=== PATIENT | female | born 1990 | race Caucasian/White ===

== ENCOUNTER 2016-08-31 18:52 | Emergency (ER) | payer OTHER ==
[2016-08-31 18:57] VITALS: BP 125/74; PULSE 69; RESP 18; TEMP 97.9; O2SAT 99
--- NOTE | 2016-08-31 19:20 | EDPHY ---
H & P Time Seen by Provider: 08/31/16 19:04 HPI/ROS: CHIEF COMPLAINT: Multiple complaints HISTORY OF PRESENT ILLNESS: The patient is a 26-year-old female who presents to the emergency department with multiple complaints. Patient states that in the past week she has had a sore throat and congestion. She flew to [place] from [place]. She landed 11 30. Hers symptoms started around 12 30. She developed mild shortness of breath. 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 She feels as though she has had shallow breathing and her chest feels heavy. She had an episode of left- sided headache that she calls "a migraine." However, she has no history of migraines. She has no headache currently. No nausea or vomiting. No visual change. No weakness or numbness. No leg pain or swelling. REVIEW OF SYSTEMS: My complete review of systems is negative except as mentioned in the HPI. Past Medical/Surgical History: Includes irregular menses Past surgical history: Negative Social History: The patient does not smoke Physical Exam: 36.6, 125/74, 69, 18, 99% on room air GENERAL: Well-appearing, in no acute distress, alert. HEENT: Eyes normal to inspection, normal pharynx, no signs of dehydration. NECK: No thyromegaly, no lymphadenopathy, supple. RESPIRATORY: Clear to auscultation bilaterally, no rales, rhonchi or wheezing. Normal CVS: Regular rate and rhythm, no rubs, murmurs, or gallops. ABDOMEN: Soft, nontender, nondistended, no organomegaly. BACK: Normal to inspection, no CVA tenderness. SKIN: Normal color, no rash, warm, dry. No pallor. EXTREMITIES: No pedal edema, no calf tenderness, no Homans sign or cords, no joint swelling. NEURO/PSYCH: Higher functions: Alert and Oriented x3. Normal speech and cognition. Normal mood and affect. Cranial nerves: Normal as tested. Cerebellar: Normal as tested. Good finger to nose, good [id number], normal gait. Peripheral exam: Normal motor exam. Normal sensation. Normal reflexes. Constitutional: Initial Vital Signs Temperature (C) 36.6 C 08/31/16 18:53 Heart Rate 69 08/31/16 18:53 Respiratory Rate 18 08/31/16 18:53 Blood Pressure 125/74 H 08/31/16 18:53 O2 Sat (%) 99 08/31/16 18:53 O2 Delivery Mode Room Air Allergies/Adverse Reactions: No Known Allergies Allergy (Unverified 08/31/16 18:57) Home Medications: Medication Instructions Recorded NK [No Known Home Meds] 08/31/16 Medical Decision Making - Diagnostics Imaging Results: Imaging Impressions Chest X-Ray 08/31/16 19:30 Impression: No pneumonia. ED Course/Re-evaluation: In the emergency department I discussed possible etiologies with the patient. I answered all her questions. Because she had shortness of breath and chest heaviness laboratory studies, EKG and chest x-ray were ordered. I do not feel the patient needs head CT imaging. EKG shows normal sinus arrhythmia, normal rate, normal axis, normal intervals. There are no ST or T-wave abnormalities. EKG is normal as interpreted by me. Patient's laboratory studies were unremarkable. Chest x-ray: No acute disease noted. No pneumonia. Discussed the results with the patient. She had no respiratory distress. I answered all her questions. She was given warnings prior to leaving. She will return with worsening symptoms. Differential Diagnosis: My differential includes but is not limited to viral illness, pneumonia, bronchitis, pneumothorax, ACS, acute [place], HACE, HAPE, PE, dissection, aneurysm - Data Points Laboratory Results: Laboratory Results 08/31/16 19:40 08/31/16 19:40 08/31/16 08/31/16 08/31/16 19:40 19:40 19:40 WBC RBC Hgb Hct MCV MCH MCHC RDW Plt Count MPV Neut % (Auto) Lymph % (Auto) [place] % (Auto) Eos % (Auto) Baso % (Auto) Nucleat RBC Rel Count Absolute Neuts (auto) Absolute Lymphs (auto) Absolute Monos (auto) Absolute Eos (auto) Absolute Basos (auto) Absolute Nucleated RBC Immature Gran % Immature Gran # D-Dimer < 0.27 ug/mLFEU ug/mLFEU (0.00-0.50) Sodium 136 mEq/L mEq/L (134-144) Potassium 4.0 mEq/L mEq/L (3.5-5.2) Chloride 101 mEq/L mEq/L (97-110) Carbon Dioxide 25 mEq/l mEq/l (22-31) Anion Gap 10 mEq/L mEq/L (8-16) BUN 8 mg/dL mg/dL (7-23) Creatinine 0.6 mg/dL mg/dL (0.6-1.0) Estimated GFR > 60 Glucose 103 mg/dL H mg/dL (70-100) Calcium 9.7 mg/dL mg/dL (8.5-10.4) Troponin I < 0.012 ng/mL ng/mL (0-0.034) Beta HCG, Qual NEGATIVE 08/31/16 19:40 WBC 6.32 10^3/uL 10^3/uL (3.80-9.50) RBC 4.74 10^6/uL 10^6/uL (4.18-5.33) Hgb 14.4 g/dL g/dL (12.6-16.3) Hct 41.9 % % (38.0-47.0) MCV 88.4 fL fL (81.5-99.8) MCH 30.4 pg pg (27.9-34.1) MCHC 34.4 g/dL g/dL (32.4-36.7) RDW 12.2 % % (11.5-15.2) Plt Count 204 10^3/uL 10^3/uL (150-400) MPV 10.4 fL fL (8.7-11.7) Neut % (Auto) 63.0 % % (39.3-74.2) Lymph % (Auto) 31.6 % % (15.0-45.0) [place] % (Auto) 4.7 % % (4.5-13.0) Eos % (Auto) 0.3 % L % (0.6-7.6) Baso % (Auto) 0.2 % L % (0.3-1.7) Nucleat RBC Rel Count 0.0 % % (0.0-0.2) Absolute Neuts (auto) 3.98 10^3/uL 10^3/uL (1.70-6.50) Absolute Lymphs (auto) 2.00 10^3/uL 10^3/uL (1.00-3.00) Absolute Monos (auto) 0.30 10^3/uL 10^3/uL (0.30-0.80) Absolute Eos (auto) 0.02 10^3/uL L 10^3/uL (0.03-0.40) Absolute Basos (auto) 0.01 10^3/uL L 10^3/uL (0.02-0.10) Absolute Nucleated RBC 0.00 10^3/uL 10^3/uL (0-0.01) Immature Gran % 0.2 % % (0.0-1.1) Immature Gran # 0.01 10^3/uL 10^3/uL (0.00-0.10) D-Dimer Sodium Potassium Chloride Carbon Dioxide Anion Gap BUN Creatinine Estimated GFR Glucose Calcium Troponin I Beta HCG, Qual Departure - Departure Disposition: Home, Routine, Self-Care Clinical Impression: Shortness of breath Headache Qualifiers: Headache type: unspecified Headache chronicity pattern: acute headache Intractability: not intractable Qualified Code(s): R51 - Headache Condition: Good Instructions: Mountain Sickness (ED), Acute Headache (ED), Dyspnea (ED) Referrals: VANITA LOWERY [Other] - 3-4 days, if not improved
--- NOTE | 2016-08-31 19:46 | CPEKG ---
Heart Rate: 69 RR Interval: 870 P-R Interval: 124 QRSD Interval: 86 QT Interval: 372 QTC Interval: 399 P Elliott: 69 QRS Elliott: 25 T Wave Elliott: 22 EKG Severity - OTHERWISE NORMAL ECG - EKG Impression: SINUS ARRHYTHMIA, RATE 59-83 Electronically Signed By: Adela De Santiago 31-Aug-2016 22:57:50
[2016-08-31 19:48] LABS: % IMMATURE GRANULYOCYTES 0.2 % (0.0-1.1); ABSOLUTE IMMATURE GRANULOCYTES 0.01 10^3/uL (0.00-0.10); ADD DIFF? NO; ADD MORPH? NO; ADD SCAN? NO; ATYPICAL LYMPHOCYTE FLAG 10 (0-99); FRAGMENT RBC FLAG 0 (0-99); HEMATOCRIT 41.9 % (38.0-47.0); HEMOGLOBIN 14.4 g/dL (12.6-16.3); LEFT SHIFT FLG 0 (0-99); LIPEMIA HEMOLYSIS FLAG 90 (0-99); MEAN CELL HEMOGLOBIN 30.4 pg (27.9-34.1); MEAN CELL HEMOGLOBIN CONCENTR. 34.4 g/dL (32.4-36.7); MEAN CELL VOLUME 88.4 fL (81.5-99.8); MEAN PLATELET VOLUME 10.4 fL (8.7-11.7); PLATELET CLUMPS FLAG 0 (0-99); PLATELET COUNT 204 10^3/uL (150-400); RED BLOOD CELL COUNT 4.74 10^6/uL (4.18-5.33); RED CELL DISTRIBUTION WIDTH 12.2 % (11.5-15.2)
[2016-08-31 20:01] LABS: ANION GAP 10 mEq/L (8-16); CALCIUM 9.7 mg/dL (8.5-10.4); CARBON DIOXIDE 25 mEq/l (22-31); CHLORIDE 101 mEq/L (97-110); CREATININE 0.6 mg/dL (0.6-1.0); GLOMERULAR FILTRATION RATE > 60; GLUCOSE 103 mg/dL (70-100); SODIUM 136 mEq/L (134-144)
[2016-08-31 20:12] LABS: TROPONIN I < 0.012 ng/mL (0-0.034)
== END 2016-08-31 20:47 | disposition home or self-care (01) ==
DX: R06.02 Shortness of breath (principal); R21 Rash and other nonspecific skin eruption